=== PATIENT | female | born 1970 | race Caucasian/White ===

== ENCOUNTER 2017-02-12 07:28 | Day surgery (SDC) | payer OTHER ==
[2017-02-12] MEDS ORDERED: TYLENOL PO ONE (09:30)
[2017-02-12] MEDS ORDERED: BENADRYL PO ONE (09:30)
[2017-02-12] MEDS ORDERED: NS IV ONE (10:00)
[2017-02-12] MEDS ORDERED: RITUXAN IV ONE (10:00)
[2017-02-12] MEDS ORDERED: BENADRYL ONE (10:42)
[2017-02-12] MEDS ORDERED: TYLENOL ONE (10:42)
[2017-02-12] MEDS ORDERED: NS 250 ML ONE (10:47)
[2017-02-12 13:27] VITALS: BP 143/84
== END 2017-02-12 13:26 | disposition home or self-care (01) ==
LOC: INF 07:28
PROVIDERS: ATTEND Internal Medicine Hematology & Oncology
DX: D69.3 Immune thrombocytopenic purpura (principal)
CPT/HCPCS: 96413; 96415; J7040; J7050; J9310